=== PATIENT | male | born 1970 | race Caucasian/White ===

== ENCOUNTER 2023-04-16 17:51 | Inpatient (IN) | payer OTHER ==
[2023-04-16 18:43] VITALS: BMI 20.5
[2023-04-16] MEDS ORDERED: MAGNESIUM HYDROX 2400MG/30ML ORAL SUSPENSION 30 ML CUP PO PRN (21:56)
[2023-04-16] MEDS ORDERED: LOPERAMIDE HCL 2 MG CAPSULE PO PRN (21:56)
[2023-04-16] MEDS ORDERED: guaiFENesin 600 MG TABLET.ER (FP) PO PRN (21:56)
[2023-04-16] MEDS ORDERED: BISMUTH SUBSALICYLATE 524 MG/30 ML PO PRN (21:56)
[2023-04-16] MEDS ORDERED: IBUPROFEN 400 MG TABLET (FP) PO PRN (21:56)
[2023-04-16] MEDS ORDERED: BENZOCAINE/MENTHOL (CHLORASEPTIC ) LOZENGE MM PRN (21:56)
[2023-04-16] MEDS ORDERED: DICYCLOMINE HCL 10 MG CAPSULE PO PRN (21:56)
[2023-04-16] MEDS ORDERED: ACETAMINOPHEN 325 MG TABLET (FP) PO PRN (21:56)
[2023-04-16] MEDS ORDERED: NALOXONE HCL 0.4 MG/ML VIAL IM PRN (21:56)
[2023-04-16] MEDS ORDERED: ONDANSETRON *ODT* 4 MG TABLET SL PRN (21:56)
[2023-04-16] MEDS ORDERED: MAG HYDROX/AL HYDROX/SIMETH 30 ML UNIT-DOSE CUP PO PRN (21:56)
[2023-04-16] MEDS ORDERED: POLYETHYLENE GLYCOL (HEALTHYLAX) 3350 17 GM PACKET PO PRN (21:56)
[2023-04-16] MEDS ORDERED: BENZONATATE 200 MG CAPSULE PO PRN (21:56)
[2023-04-16] MEDS ORDERED: NALOXONE HCL (KLOXXADO) 8 MG SPRAY NS PRN (21:56)
[2023-04-16] MEDS ORDERED: cloNIDine HCL 0.1 MG TABLET PO PRN (21:59)
[2023-04-16] MEDS ORDERED: methaDONE HCL 10 MG TABLET (FOR DETOX USE ONLY) PO ONE (21:59)
[2023-04-17] MEDS: PRENATAL VITAMINS W/ FOLIC ACID TABLET (FP) PO SCH (10:14)
[2023-04-17] MEDS: METHOCARBAMOL 500 MG TABLET PO PRN ×2 (10:14→22:47)
[2023-04-17] MEDS: NICOTINE 21 MG/24 HOURS TOPICAL PATCH TD SCH (10:17)
[2023-04-17 11:43] LABS: POTASSIUM 4.5 mmol/L (3.5-5.1)
[2023-04-17 11:51] LABS: ALBUMIN 2.8 g/dl (3.4-5.0); BLOOD UREA NITROGEN 21.3 mg/dL (7-18); CALCIUM 8.9 mg/dL (8.5-10.1)
[2023-04-17 11:53] LABS: CREATININE 0.8 mg/dL (0.55-1.3)
[2023-04-17 11:54] LABS: TOT PROT 7.4 g/dl (6.4-8.2)
[2023-04-17 11:55] LABS: BILIRUBIN,TOTAL 0.2 mg/dL (0.2-1)
[2023-04-17 11:59] LABS: HEMATOCRIT 33.7 % (35.4-49); HEMOGLOBIN 10.4 GM/dL (11.7-16.9); MCH 23.5 pg (25.7-33.7); MCHC 30.9 g/dl (32.0-35.9); MEAN CELL VOLUME 75.9 fl (80-96); MEAN PLT VOLUME 8.9 fl (7.5-11.1); PLATELET COUNT 276 10^3/uL (134-434); RBC 4.45 M/mm3 (4.00-5.60); RDW 17.6 % (11.9-15.9); WHITE BLOOD COUNT 3.7 K/mm3 (4.0-10.0)
[2023-04-17] MEDS: THIAMINE HCL 100 MG TABLET (FP) PO SCH ×2 (18:15→22:48)
[2023-04-17] MEDS: MELATONIN 5 MG TABLETS PO SCH ×2 (18:15→22:47)
[2023-04-17] MEDS: diazePAM 5 MG TABLET PO PRN (22:47)
[2023-04-18] MEDS ORDERED: methaDONE HCL 10 MG TABLET (FOR DETOX USE ONLY) PO ONE (10:00)
[2023-04-18] MEDS: NICOTINE 21 MG/24 HOURS TOPICAL PATCH TD SCH (10:15)
[2023-04-18] MEDS: PRENATAL VITAMINS W/ FOLIC ACID TABLET (FP) PO SCH (10:15)
[2023-04-18] MEDS: NICOTINE 10 MG CARTRIDGE (INHALER) IH PRN (10:16)
[2023-04-18] MEDS: METHOCARBAMOL 500 MG TABLET PO PRN ×2 (10:17→22:28)
[2023-04-18] MEDS: diazePAM 5 MG TABLET PO PRN ×2 (12:18→22:28)
[2023-04-18] MEDS: MELATONIN 5 MG TABLETS PO SCH (22:28)
[2023-04-18] MEDS: THIAMINE HCL 100 MG TABLET (FP) PO SCH (22:28)
[2023-04-19] MEDS: NICOTINE 21 MG/24 HOURS TOPICAL PATCH TD SCH (10:31)
[2023-04-19] MEDS: PRENATAL VITAMINS W/ FOLIC ACID TABLET (FP) PO SCH (10:32)
[2023-04-19] MEDS: METHOCARBAMOL 500 MG TABLET PO PRN (10:32)
[2023-04-19] MEDS: diazePAM 5 MG TABLET PO PRN ×2 (12:16→18:01)
[2023-04-19] MEDS: IBUPROFEN 600 MG TABLET (FP) PO PRN (15:04)
[2023-04-19] MEDS: NICOTINE 10 MG CARTRIDGE (INHALER) IH PRN (18:43)
[2023-04-19] MEDS: THIAMINE HCL 100 MG TABLET (FP) PO SCH (22:26)
[2023-04-19] MEDS: MELATONIN 5 MG TABLETS PO SCH (22:26)
[2023-04-20] MEDS: diazePAM 5 MG TABLET PO PRN ×3 (07:56→22:46)
[2023-04-20] MEDS ORDERED: methaDONE HCL 10 MG TABLET (FOR DETOX USE ONLY) PO ONE (10:00)
[2023-04-20] MEDS: PRENATAL VITAMINS W/ FOLIC ACID TABLET (FP) PO SCH (10:02)
[2023-04-20] MEDS: NICOTINE 21 MG/24 HOURS TOPICAL PATCH TD SCH (10:03)
[2023-04-20] MEDS: NICOTINE 10 MG CARTRIDGE (INHALER) IH PRN ×2 (10:05→17:32)
[2023-04-20] MEDS: METHOCARBAMOL 500 MG TABLET PO PRN (10:08)
[2023-04-20] MEDS ORDERED: TRIMETHOBENZAMIDE HCL 200MG/2ML INJ IM PRN (10:54)
[2023-04-20] MEDS: cloNIDine HCL 0.1 MG TABLET PO PRN ×2 (11:23→17:32)
[2023-04-20] MEDS: IBUPROFEN 600 MG TABLET (FP) PO PRN (17:35)
[2023-04-20] MEDS: THIAMINE HCL 100 MG TABLET (FP) PO SCH (22:45)
[2023-04-20] MEDS: MELATONIN 5 MG TABLETS PO SCH (22:45)
[2023-04-21] MEDS: cloNIDine HCL 0.1 MG TABLET PO PRN (05:54)
[2023-04-21] MEDS: diazePAM 5 MG TABLET PO PRN (07:57)
[2023-04-21] MEDS: IBUPROFEN 600 MG TABLET (FP) PO PRN (08:48)
[2023-04-21 09:49] VITALS: BP 85/56; PULSE 99; RESP 16; TEMP 98.2
== END 2023-04-21 09:40 | disposition home or self-care (01) | DRG 773 ==
LOC: YASAS 17:51 → Y6N 04-17 03:03
PROVIDERS: ADMIT Allergy & Immunology; ATTEND Allergy & Immunology
PROC: HZ2ZZZZ Detoxification Services for Substance Abuse Treatment (ICD-10-PCS; principal; 2023-04-17)
DX: F11.23 Opioid dependence with withdrawal (principal); F14.20 Cocaine dependence, uncomplicated; F12.20 Cannabis dependence, uncomplicated; F17.210 Nicotine dependence, cigarettes, uncomplicated; Z28.310 Unvaccinated for COVID-19; Z28.9 Immunization not carried out for unspecified reason
CPT/HCPCS: 36415; 80053; 85027; 86780; 87635; 87811; 93005; 93010; Q0162